=== PATIENT | female | born 1985 | race Caucasian/White ===

== ENCOUNTER 2024-03-26 12:06 | Outpatient (CLI) | payer OTHER, SELFPAY ==
[2024-03-26 23:20] LABS: Chlamydia DNA Amplified* NOT DETECTED (No Detected); GC DNA Amplified* NOT DETECTED (No Detected)
[2024-03-28 17:49] LABS: HPV Source Cervix; HPV, High Risk by TMA Not Detected
== END 2024-03-26 12:07 | disposition home or self-care (01) ==
PROVIDERS: PCP Physician Assistant Medical; Visit Provider Physician Assistant Medical
DX: Z00.00 Encounter for general adult medical examination without abnormal findings (principal); E66.01 Morbid (severe) obesity due to excess calories; Z13.1 Encounter for screening for diabetes mellitus; Z13.6 Encounter for screening for cardiovascular disorders; Z11.3 Encounter for screening for infections with a predominantly sexual mode of transmission
CPT/HCPCS: 87491; 87591; 87624; 87625; 88141; 88142

== ENCOUNTER 2024-04-11 07:34 | Outpatient (CLI) | payer OTHER, SELFPAY | END 2024-04-11 07:35 | disposition home or self-care (01) | LOC: NFLDREF 04-13 14:18 | PROVIDERS: PCP Physician Assistant Medical; Referring Provider Physician Assistant Medical; Visit Provider Physician Assistant Medical | DX: E66.9 Obesity, unspecified (principal); Z13.0 Encounter for screening for diseases of the blood and blood-forming organs and certain disorders involving the immune mechanism; Z13.6 Encounter for screening for cardiovascular disorders; Z13.1 Encounter for screening for diabetes mellitus | CPT/HCPCS: 80053; 80061; 84443 ==

== ENCOUNTER 2024-07-09 07:34 | Outpatient (CLI) | payer OTHER, SELFPAY | END 2024-07-09 07:35 | disposition home or self-care (01) | LOC: MAMMO 07:34 | PROVIDERS: PCP Physician Assistant Medical; Visit Provider Physician Assistant Medical | DX: Z12.31 Encounter for screening mammogram for malignant neoplasm of breast (principal) | CPT/HCPCS: 77063; 77067 ==